=== PATIENT | male | born 1985 | race American Indian/Alaskan Native ===

== ENCOUNTER 2016-11-21 22:13 | Emergency (ER) | payer SELFPAY ==
[2016-11-21 23:16] VITALS: BP 125/86
== END 2016-11-21 23:30 | disposition left against medical advice (07) ==
LOC: ED 22:13
DX: Z53.21 Procedure and treatment not carried out due to patient leaving prior to being seen by health care provider (principal)
CPT/HCPCS: 93005; 93010